=== PATIENT | female | born 1990 | race Two or more races ===

== ENCOUNTER 2020-09-01 16:30 | Emergency (ER) | payer OTHER ==
[~2020-09-01] VITALS: Ht 157.5 cm; Wt 54.4 kg
[2020-09-01 16:57] VITALS: BP 111/80
[2020-09-01] MEDS ORDERED: SODIUM CHLORIDE 0.9% 1,000 ML IVB ONE (19:45)
== END 2020-09-01 20:56 | disposition left against medical advice (07) ==
LOC: ER 16:30
DX: R10.9 Unspecified abdominal pain (principal); Z53.21 Procedure and treatment not carried out due to patient leaving prior to being seen by health care provider